=== PATIENT | female | born 1945 | race African-American/Black ===

== ENCOUNTER → 2020-08-13 | Outpatient (CLI) | payer MEDICARE, OTHER ==
--- NOTE | 2020-08-13 08:42 | BD ---
EXAMINATION TYPE: Axial Bone Density DATE OF EXAM: 08/13/2020 COMPARISON: 05.31.2015 CLINICAL HISTORY: 75 YR OLD FEMALE....ICD-10 CODE: N95.1 POST MENOPAUSAL Height: 65 Weight: 197 FRAX RISK QUESTIONS: Secondary Osteoporosis: YES 3. Menopause before 45: YES RISK FACTORS HISTORY OF: Diet low in dairy products/other sources of calcium: YES, A BIT LOW Postmenopausal woman: YES AT AGE, HYST AT AGE 36 YRS OLD Take estrogen and/or progesterone medications: YES, TOOK THEM FOR ABOUT 30 YRS Hyperparathyroidism: NO Adrenal Insufficiency: NO MEDICATIONS: Additional Medications: BP MEDS, HX OF CHEMO AND RADIATION, BREAST CANCER, DIABETIC MEDS, Additional History: HYPERTENSION, DIABETIC, HX OF BREAST CANCER EXAM MEASUREMENTS: Bone mineral densitometry was performed using the [employer] System. Bone mineral density as measured about the Lumbar spine is: ----- L1-L4(G/cm2): 1.672 T Score Values are as follows: ----- L1: 2.4 ----- L2: 3.1 ----- L3: 5.5 ----- L4: 4.5 ----- L1-L4: 4.1 Bone mineral density has: Increased 6.9% SINCE 05.31.2015 Bone mineral density about the R hip (g/cm2): 0.970 Bone mineral density about the L hip (g/cm2): 0.909 T Score values are as follows: -----R Neck: -0.6 -----L Neck: -1.0 -----R Total: -0.3 -----L Total: -0.8 Bone mineral density has: Decreased -10.0 % SINCE STUDY OF 05.31.2015 FRAX%s: THERE IS A 6.9% CHANCE FOR A MAJOR OSTEOPOROTIC FX AND A 1.0% FOR HIP......PROBABILITY FOR FX IN 10 YRS TIME IMPRESSION: Normal (Values between +1 and -1 indicate normal bone mass). However, measurements border on osteopen ia at the left hip. Consider repeating this study in 5 years or sooner if there is some new clinical indication. NOTE: T-SCORE=SD OF THE YOUNG ADULT MEAN.
== END | disposition home or self-care (01) ==
LOC: RADBDWWP 07:21
PROVIDERS: ATTEND Obstetrics & Gynecology
DX: M85.88 Other specified disorders of bone density and structure, other site (principal)
CPT/HCPCS: 77080

== ENCOUNTER → 2023-10-31 | Outpatient (CLI) | payer MEDICARE ==
--- NOTE | 2023-10-31 14:41 | XR ---
EXAMINATION TYPE: XR chest 2V DATE OF EXAM: 10/31/2023 COMPARISON: None INDICATION: Chest pain, history of breast cancer TECHNIQUE: Single frontal view of the chest is obtained. FINDINGS: The heart size is normal. The pulmonary vasculature is normal. The lungs are clear. Scoliosis within the thoracic spine. IMPRESSION: 1. No acute pulmonary process.
== END | disposition home or self-care (01) ==
LOC: RADXRMAIN 13:26
PROVIDERS: ATTEND Family Medicine
DX: R07.89 Other chest pain (principal); Z85.3 Personal history of malignant neoplasm of breast
CPT/HCPCS: 71046

== ENCOUNTER → 2024-09-17 | Outpatient (CLI) | payer MEDICARE ==
--- NOTE | 2024-09-17 15:02 | XR ---
EXAMINATION TYPE: XR chest 2V DATE OF EXAM: 09/17/2024 2:59 PM COMPARISON: Chest radiographs from 10/31/2023 TECHNIQUE: XR chest 2V Frontal and lateral views of the chest. CLINICAL INDICATION:Female, 79 years old with history of BRONCHITIS J40; FINDINGS: Lungs/Pleura: There is no evidence of pleural effusion, focal consolidation, or pneumothorax. Pulmonary vascularity: Unremarkable. Heart/mediastinum: Cardiomediastinal silhouette is unremarkable. Atherosclerotic calcifications are seen in the aorta. Musculoskeletal: No acute osseous pathology. Other findings: Surgical clips in the upper abdomen. IMPRESSION: No acute cardiopulmonary disease/process. [facility], , 09/17/2024 3:00 PM
== END | disposition home or self-care (01) ==
LOC: RADXRMAIN 14:46
PROVIDERS: ATTEND Family Medicine
DX: J40 Bronchitis, not specified as acute or chronic (principal); I70.0 Atherosclerosis of aorta
CPT/HCPCS: 71046

== ENCOUNTER → 2024-12-16 | Day surgery (SDC) | payer MEDICARE ==
[2024-12-12 15:50] VITALS: BMI 32.9
[~2024-12-16] MED LIST: ALPRAZolam 0.25 MG TAB PO PRN; ASPIRIN 81 MG PO SCH; ATORVASTATIN 40 MG TAB PO SCH; HEPARIN SODIUM,PORCINE (1 ML) 2,500 UNIT in SODIUM CHLORIDE 0.9% 250 ML IRRIGATION PRN; HEPARIN SODIUM,PORCINE 10,000 UNIT in SODIUM CHLORIDE 0.9% 1,000 ML IRRIGATION PRN; NITROGLYCERIN SL TABS 0.4 MG TAB SUBLINGUAL PRN; NON FORMULARY DRUG (Enalapril 10 MG Tab) PO SCH; PIOGLITAZONE 15 MG TAB PO SCH; RX INFO: IV CONTRAST WAS GIVEN 1 EACH MISC MISCELLANE PRN; SODIUM CHLORIDE 0.9% 1,000 ML IV SCH; amLODIPine 5 MG TAB PO SCH
[2024-12-16 06:20] VITALS: TEMP 98.2
[2024-12-16] MEDS: IV FLUID CONTINUATION 1,000 ML IV ONE (06:21)
[2024-12-16] MEDS: ASPIRIN 325 MG TAB PO STA (06:23)
[2024-12-16] MEDS: ATORVASTATIN 80 MG TAB PO STA (06:23)
[2024-12-16] MEDS: SODIUM CHLORIDE 0.9% 1,000 ML in EMPTY BAG 1 BAG IV SCH (06:24)
[2024-12-16 06:28] LABS: Glucose,Whole Blood 146 mg/dL (70-110)
[2024-12-16] MEDS: ALPRAZolam 0.5 MG TAB PO PRN (06:29)
[2024-12-16] MEDS: lisinopriL 10 MG TAB PO STA (06:32)
[2024-12-16] MEDS: amLODIPine 5 MG TAB PO STA (06:35)
[2024-12-16 07:09] LABS: Mean Platelet Volume 10.6; Platelet Count 190 k/uL (150-450)
[2024-12-16] MEDS: fentaNYL (PF) 50 MCG/ML 2 ML AMP IVP ONE (07:45)
[2024-12-16] MEDS: LIDOCAINE 1% INJ 10MG/ML (20 ML MDV) SQ ONE (07:46)
[2024-12-16] MEDS: VERAPAMIL SYRINGE (5 MG/10 ML) INTRAARTER ONE (07:47)
[2024-12-16] MEDS: HEPARIN SODIUM 1,000 UN/ML (10ML VL) IVP ONE (07:50)
[2024-12-16] MEDS: MIDAZOLAM 2 MG/2 ML VIAL IVP ONE (07:50)
[2024-12-16] MEDS: HEPARIN SODIUM,PORCINE 10,000 UNIT in SODIUM CHLORIDE 0.9% 1,000 ML IRRIGATION ONE (07:52)
[2024-12-16] MEDS: HEPARIN SODIUM,PORCINE (1 ML) 2,500 UNIT in SODIUM CHLORIDE 0.9% 250 ML IRRIGATION ONE (07:52)
[2024-12-16] MEDS: IOPAMIDOL-370 100ML BTL INJ ONE (08:01)
--- NOTE | 2024-12-16 08:21 | P.CARDCATH ---
Date of Procedure: 12/16/24 Description of Procedure: Cardiac Catheterization: The patient is an 79-year-old female with a history of hypertension, hyperlipidemia, diabetes mellitus who has been complaining of progressive symptoms of fatigue and had an abnormal MPI with apical ischemia. Recommendations were made regarding cardiac catheterization, the risks and the complications were discussed with the patient who is in full understanding and agreement. Procedure Description: Patient was brought to label stamper in fasting semi-sedated state after receiving Fentanyl and Benadryl achieiving moderate conscious sedated state. Using Xylocaine Anesthesia and modified Seldinger technique, a 6-Ukrainian sheath was introduced in the right radial artery . Subsequently, selective coronary angiography was performed using a 5-Ukrainian 3.5 bend Ashley catheter. Multiple views of the coronary artery including hemiaxial views were obtained. The 5 Ukrainian pigtail catheter was used to cross the aortic valve and LVEDP was calculated. Following that, catheter and sheath were removed. Hemostasis was obtained with deployment of vascular band . There was no immediate complication. Patient was returned to room in stable condition. Of note, the patient received a total of 5000 units of intravenous heparin as well as intra-arterial verapamil. Findings: Left main: This is a large size vessel, trifurcating into left circumflex, ramus intermedius and LAD, the left main has no obstructive disease LAD: This is a large size vessel, reaching to the apex, tortuous with a wraparound apex segment giving rise to a moderately sized diagonal branch. The LAD and its branches have no obstructive disease Left circumflex: This is a large nondominant vessel giving rise to 2 obtuse marginal branch. The left circumflex proximally has mild intimal disease of 20% without any evidence of high-grade stenosis. RCA: This is a large dominant vessel giving rise to a PDA proximally has 20% plaque, the rest of the vessel has no high-grade stenosis Ramus intermedius: This vessel has no evidence of high-grade stenosis Left Ventriculogram: Not performed Hemodynamics: There was no gradient across the aortic valve, LVEDP was 20-24 mmHg Conclusion: 1. 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 Right dominance 3. Mildly elevated LVEDP Recommendations: I have recommended to continue medical therapy, I see no evidence of high-grade stenosis. Will optimize her medical regimen.. The findings and the recommendations were discussed with the patient and the family and they were in full understanding and agreement. Duration of sedation is 19 minutes.
[2024-12-16 12:15] VITALS: RESP 14
[2024-12-16 12:16] VITALS: BP 139/64; PULSE 70
== END | disposition home or self-care (01) ==
LOC: CATHCVL 05:34
PROVIDERS: ATTEND Internal Medicine Interventional Cardiology
DX: I65.21 Occlusion and stenosis of right carotid artery (principal); R94.39 Abnormal result of other cardiovascular function study; I10 Essential (primary) hypertension; E78.5 Hyperlipidemia, unspecified; E11.9 Type 2 diabetes mellitus without complications; Z79.84 Long term (current) use of oral hypoglycemic drugs
CPT/HCPCS: 85049; 93458; J2250; J1644 ×3; J2003; J3010; Q9967